=== PATIENT | male | born 1975 | race Caucasian/White ===

== ENCOUNTER 2024-10-27 09:03 | Emergency (ER) | payer MEDICAID ==
[~2024-10-27] VITALS: Ht 175.3 cm; Wt 65.7 kg
[2024-10-27 09:22] VITALS: BP 103/68; PULSE 85; O2SAT 98
--- NOTE | 2024-10-27 09:56 | Physician Documentation ---
History of Present Illness ~ Chief Complaint: Abscess Stated Complaint: ABSCESS Time Seen by MD: 09:39 HPI This is a 49-year-old male who presents with a painful erythematous swollen mass to his right posterior scapular area, patient reports present and gown larger over the last approximately three weeks, patient reports no fever, chills or other systemic symptoms. Patient reports feels otherwise well and reports no other acute symptoms or concerns. Tetanus Within 5 Years: No Medication Reconciliation Allergies: Coded Allergies: No Known Allergies (Unverified , 10/27/24) Scheduled Sulfamethoxazole/Trimethoprim (Bactrim Ds Tablet), 1 TAB PO Q12H Past Medical History Past Medical History: No Pertinent History Review of Systems ROS As stated above in the HPI, otherwise all systems are reviewed and negative. Physical Exam Vital Signs: Temperature: 97.3, Source: Oral, Heart Rate: 85, Respiratory Rate: 16, BP: 103/68, Pulse Oximetry: 98, Weight: 65.720 Oxygen Flow Rate: 0 Physical Exam VITALS: Reviewed and as above. GENERAL: Alert, nontoxic appearing, no apparent distress. RESPIRATORY: No increased work of breathing, no respiratory distress, speaking in full clear sentences SKIN: Skin of right scapular back 8 cm x 8 cm erythematous, tender fluctuant mass with minimal surrounding erythema without significant induration Procedures I & D Procedure : Site: Right posterior scapular area Anesthesia: Lidocaine w/ Epi Volume Anesthetic (mls): 7 Blade Size: 11 Prep/Supplies: drapes applied, dressing applied, irrigated, packing placed (20cm) Incision: mass incised, pus drained, blood drained Tolerated Procedure Well?: yes, no complications Progress Results/Orders Results/Orders Orders - NICOLLE KO Laceration/I&D Tray Set Up (10/27/24 09:50) Consent For Procedure (10/27/24 ) Completed Orders - NICOLLE KO Lidocaine 1% W/Epi 1:100,000 (Xylocaine (10/27/24 09:50) Tetanus/Pertuss/Diph Acell/Pf (Boostrix (10/27/24 09:50) Ketorolac Trometh 15mg/Ml Vial (Toradol (10/27/24 09:55) Vital Signs 10/27/24 10/27/24 10/27/24 09:22 10:18 11:10 Temp 97.3 97.3 Pulse 85 Resp 16 16 B/P (MAP) 103/68 Pulse Ox 98 O2 Flow Rate 0 Medical Decision Making Findings This is a 49-year-old male who presented with a painful erythematous swollen mass to his right posterior scapular area, physical exam demonstrated erythema and fluctuance consistent with an uncomplicated dermal abscess, there was not significant surrounding induration to suggest significant cellulitis of the area. The abscess was successfully drained this incision and drainage and the abscess packed. Patient tolerated procedure well. Remainder of physical exam was benign and it was reassuring patient reported feeling otherwise well without fever, chills, or other systemic symptoms. Due to size of abscess oral antibiotics were indicated. Patient provided home care instructions return to care precautions, and follow up instructions which he verbalized understanding of. Differential Dx:Considerations: Include: Abscess, Bacteremia, Cellulitis, Erysipelas, Gas gangrene, Septicemia Departure Time of Disposition: 11:03 Disposition: 01 HOME / SELF CARE / HOMELESS Impression: Primary Impression: Abscess Condition: Improved Discharge Instructions: Incision and Drainage, Cellulitis, Adult, [id number] Additional Instructions: Please take the antibiotics as prescribed. Keep the area clean dry and covered, change the dressing at least once a day or whenever becomes soiled or soaked. Please return here or your choice of medical provider in 48 hours to have the wound reassessed and packing changed. You may use ibuprofen and or Tylenol as needed for pain. Please follow up with your primary care provider in the next few days. Please return to the emergency department for any new or worsening concerning symptoms. Referrals: NO PRIMARY CARE PROVIDER (PCP) Prescriptions Sulfamethoxazole/Trimethoprim (Bactrim Ds Tablet) 800 Mg-160 Mg Tablet 1 TAB PO Q12H for 7 Days, #14 TAB Prov: NICOLLE KO 10/27/24 Education Educated: Patient Educated regarding: diagnosis, treatment, prognosis, need for follow up Signature Scribe Signature: No scribe Attestation: The note accurately reflects work and decisions made by me.CARLY Yost 10/28/24 20:09 NICOLLE KO Oct 27, 2024 09:56
[2024-10-27 10:18] VITALS: RESP 16
[2024-10-27] MEDS: ketorolac trometh 15mg/ml vial 15 MG/ML ML IM ONE (10:18)
[2024-10-27] MEDS: TETanus/Pertussis (Acell)/Diphther VAC/PF (Tdap-Adult) 0.5ml syringe IMVAC ONE (10:19)
[2024-10-27] MEDS: LIDOcaine 1% W/epiNEPHrine 1:100,000 20ml vial IJ ONE (10:23)
[2024-10-27] MEDS ORDERED: SULF1TAB49 PO (11:03)
[2024-10-27 11:10] VITALS: TEMP 97.3
== END 2024-10-27 11:11 | disposition home or self-care (01) ==
LOC: ER 09:04
DX: M86.8X1 Other osteomyelitis, shoulder (principal); Z79.899 Other long term (current) drug therapy
CPT/HCPCS: 10060; 90471; 90715; 96372; 99284; J1885; A6258; A6407; A6449

== ENCOUNTER → 2024-10-29 | Emergency (ER) | payer MEDICAID ==
[~2024-10-29] VITALS: Ht 175.3 cm; Wt 65.6 kg
[~2024-10-29] MED LIST: SULF1TAB49 PO
[2024-10-29 14:45] VITALS: BP 106/68; PULSE 88; RESP 16; O2SAT 98
--- NOTE | 2024-10-29 16:01 | Physician Documentation ---
History of Present Illness ~ Chief Complaint: Wound Re-Check Stated Complaint: ABSCESS RECHECK Time Seen by MD: 15:13 Source: patient Mode of Arrival: POV Exam Limitations: no limitations HPI 49-year-old male who is here to have his abscess rechecked on his back which was treated here a few days ago with I&D and packing placed. He states he needs to have the packing removed. He reports the pain is a lot better. He has not yet picked up the antibiotics. He denies any new concerns or complaints. Tetanus within 5 years?: No Medication Reconciliation Allergies: Coded Allergies: No Known Allergies (Unverified , 10/27/24) Scheduled Sulfamethoxazole/Trimethoprim (Bactrim Ds Tablet), 1 TAB PO Q12H Past Medical History Past Medical History: No Pertinent History Review of Systems All Other Systems at this time: Reviewed and Negative Physical Exam Vital Signs: Temperature: 98.2, Source: Temporal, Heart Rate: 88, Respiratory Rate: 16, BP: 106/68, Pulse Oximetry: 98, Weight: 65.600 Oxygen Flow Rate: 0 Physical Exam General Appearance: Alert, WD/WN. NAD. HEENT: NCAT, PERRL, EOMI. Neck: Supple, trachea midline. Cardiovascular: RRR. No m/r/g. Lungs: Breathing unlabored BACK: MID BACK THERE IS PACKING IN PLACE THAT IS COMING FROM A AREA WHERE THERE WAS RECENT INCISION AND DRAINAGE. PACKING REMOVED AND PACKING IS MOSTLY BLOODY, NOT A LOT OF DRAINAGE. Extremities: Normal inspection. No edema. Skin: Warm/dry, normal color Neurological: Alert and oriented x4, normal gait. Psychiatric: Affect congruent with mood. Progress Results/Orders Results/Orders Vital Signs 10/29/24 14:45 Temp 98.2 Pulse 88 Resp 16 B/P (MAP) 106/68 Pulse Ox 98 O2 Flow Rate 0 Medical Decision Making Differential Dx:Considerations: Include: Abscess, Cellulitis, Dressing change, Healing wound Departure Time of Disposition: 15:59 Disposition: 01 HOME / SELF CARE / HOMELESS Impression: Primary Impression: Abscess Condition: Stable Discharge Instructions: Abscess, Care After Additional Instructions: CONTINUE TO KEEP AREA CLEAN AND QA AUTOMATION ARCHITECT ANTIBIOTICS PRESCRIBED AT YOUR INITIAL VISIT I DECIDED NOT TO REPACK AREA THE PACKING REMOVED DID NOT CONTAIN A SIGNIFICANT AMOUNT OF DRAINAGE IF INCREASING PAIN, FEVER, OR ANY OTHER CONCERNING SYMPTOMS RETURN TO ER Referrals: NO PRIMARY CARE PROVIDER (PCP) Education Educated: Patient Educated regarding: diagnosis, treatment, need for follow up Signature Scribe Signature: X Attestation: LAURA MCKEON Oct 29, 2024 16:01
[2024-10-29 16:02] VITALS: TEMP 98.2
== END | disposition home or self-care (01) ==
LOC: ER 14:29
DX: L02.212 Cutaneous abscess of back [any part, except buttock and flank] (principal); Z79.899 Other long term (current) drug therapy
CPT/HCPCS: 99281; A6258; A6449

== ENCOUNTER 2025-02-13 16:46 | Inpatient (IN) | payer MEDICAID ==
[~2025-02-13] VITALS: Ht 175.3 cm; Wt 65.9 kg
--- NOTE | 2025-02-13 17:01 | Physician Documentation ---
History of Present Illness ~ Chief Complaint: Hyperglycemia Stated Complaint: HIGH BLOOD SUGAR Time Seen by MD: 17:54 HPI Patient is a very pleasant 49-year-old male that presents to the emergency department for evaluation of elevated glucose or hyperglycemia. Patient reports that he is a type 1 diabetic previously took insulin to control his diabetes. Patient reports that he was taken off of the insulin and placed on metformin and glipizide but has since been changed to Basaglar 42 units daily at bedtime, and did take his dose last night. The patient also reports that he is very hard of hearing, most read lips to communicate. He denies any chills or fever, nausea or vomiting, but does note that he has had some back pain which is new for him. No chest pain or shortness of breath. No urinary symptoms. No diarrhea. Denies other medical problems besides the diabetes. Medication Reconciliation Allergies: Coded Allergies: No Known Allergies (Unverified , 02/13/25) Past Medical History Past Medical History: No Pertinent History Review of Systems ROS As stated above in the HPI, otherwise all systems are reviewed and negative. Physical Exam Vital Signs: Temperature: 98.5, Source: Temporal, Heart Rate: 118, Respiratory Rate: 16, BP: 115/87, Pulse Oximetry: 99, Weight: 65.910 Oxygen Flow Rate: 0 Physical Exam General: Alert, no apparent distress. HEENT: PERRL, EOMI, no injection, moist mucous membranes. Neck: Full range of motion. Respiratory: Lungs clear, no respiratory distress. Chest: No accessory muscle use. Cardiovascular: Regular rate and rhythm, no murmurs. Gastrointestinal: Soft, nontender, nondistended. Bowels sounds present. Extremities: Normal range of motion, no deformity. Neurologic: Oriented x4. Psychiatric: Normal mood and affect. Skin: Normal color, warm and dry. No edema, no ecchymosis. Progress Results/Orders Results/Orders Orders - WHITNEY ARMANDO NP Accucheck (02/13/25 16:54) Accucheck (02/13/25 17:54) Accucheck (02/13/25 18:54) Hs Troponin I W Calculations (02/13/25 18:54) Hs Troponin I W Calculations (02/13/25 19:54) Page Hospitalist (02/13/25 18:12) Ua W/Microscopic, Cult If Ind (02/13/25 17:50) Normal Saline 1,000ml Iv Bolus (02/13/25 18:20) WHITNEY French SOLICITOR PATENT Cbc/Diff (02/13/25 16:54) MG (02/13/25 16:54) BMP (02/13/25 16:54) Hs Troponin I W Calculations (02/13/25 16:54) Liver Panel (02/13/25 16:54) Acetone, Serum (02/13/25 16:55) Insulin Regular, Human (Humulin R 10 Uni (02/13/25 17:55) Electrocardiogram (02/13/25 ) Vital Signs 02/13/25 16:47 Temp 98.5 Pulse 118 Resp 16 B/P (MAP) 115/87 Pulse Ox 99 O2 Flow Rate 0 Laboratory Tests Test 02/13/25 16:50 02/13/25 17:11 02/13/25 17:50 Glucometer 460 *H White Blood Count 12.6 H Red Blood Count 5.14 Hemoglobin 16.6 Hematocrit 48.8 Mean Corpuscular Volume 94.9 Mean Corpuscular Hemoglobin 32.3 H Mean Corpuscular Hemoglobin Concent 34.1 Red Cell Distribution Width 14.7 H Platelet Count 395 Mean Platelet Volume 7.5 Neutrophils (%) (Auto) 73.9 Lymphocytes (%) (Auto) 20.4 L Monocytes (%) (Auto) 5.0 Eosinophils (%) (Auto) 0.2 Basophils (%) (Auto) 0.5 Neutrophils # (Auto) 9.3 H Lymphocytes # (Auto) 2.6 Monocytes # (Auto) 0.6 Eosinophils # (Auto) 0.0 Basophils # (Auto) 0.1 CBC Comment Sodium Level 128 L Potassium Level 4.7 Chloride Level 91 L Carbon Dioxide Level 26.2 Anion Gap 11 Blood Urea Nitrogen 20 H Creatinine 0.79 Estimated GFR/1.73 m2 > 90 BUN/Creatinine Ratio 25.3 H Glucose Level 427 *H Calcium Level 9.6 Magnesium Level 1.7 Total Bilirubin 1.2 H Direct Bilirubin 0.2 Aspartate Amino Transf (AST/SGOT) 12 Alanine Aminotransferase (ALT/SGPT) 8 L Alkaline Phosphatase 95 Troponin I High Sensitivity 12 Total Protein 8.1 Albumin 3.8 Globulin 4.3 Albumin/Globulin Ratio 0.9 L Chemistry Comments Acetone Level Negative Urine Specimen Description Cln catch midstream Urine Color Yellow Urine Clarity Clear Urine pH 5.5 Urine Specific Brigantine 1.010 Urine Protein Trace Urine Glucose (UA) >=1000 H Urine Ketones 40 H Urine Occult Blood Negative Urine Nitrite Negative Urine Bilirubin Small Urine Urobilinogen 0.2 Urine Leukocyte Esterase Negative Volume Urine Centrifuged 10 ml Urine Comment EKG/XRAY/CT/US/VASC/MRI EKG : Additional Comment 1815 EKG interpreted to show RSR with rate of 87. No ectopy. LVH, no ectopy. QTC 496 ms. Medical Decision Making Additional information obtaine: old records Findings Last visit to this hospital 10/29/24 for abscess. Differential Dx:Considerations: Include: Other Differential Diagnosis Due to his hyponatremia of 128, glucoses in the 400's and overall feeling unwell despite his usual insulin regimen, the patient is appropriate for admission and the hospitalist was paged at 1815. His acetone level was negative. Most Likely Diagnoses: Uncontrolled type 2 diabetes mellitus with severe hyperglycemia is the primary concern given home blood sugars in the 400s mg/dL. The general malaise likely reflects symptomatic hyperglycemia, which can manifest as fatigue and nonspecific unwellness even without classic polyuria or polydipsia.[8] Hyperosmolar hyperglycemic state (HHS) should be strongly considered, as it presents with marked hyperglycemia and profound dehydration but typically little or no ketosis. HHS often manifests with neurologic symptoms ranging from lethargy to altered mental status, and the absence of nausea/vomiting does not exclude it. The general unwellness and lack of classic DKA symptoms (nausea, vomiting) make this more likely than DKA.[9] Diabetic ketoacidosis (DKA) remains possible despite the absence of nausea and vomiting, as these symptoms are not universally present. Patients with glucose levels exceeding 200 mg/dL should be evaluated for ketones, particularly when feeling unwell.[2] Mechanical low back pain from degenerative disc disease or musculoskeletal strain is common in this age group. The absence of urinary symptoms, fever, or neurologic deficits makes uncomplicated mechanical pain more likely than infectious or compressive etiologies.[10] Diabetic peripheral neuropathy or radiculopathy can cause back pain in patients with diabetes. Diabetes causes various patterns of nerve injury including radiculoplexus neuropathy and radiculopathy, which could manifest as isolated back pain.[11] Medication nonadherence is a common precipitant of severe hyperglycemia and should be explored as a contributing factor.[9] Most Important Not to Miss Diagnoses: Spinal epidural abscess (SEA) must be excluded given the combination of diabetes (immunocompromise) and back pain. While the classic triad of back pain, fever, and neurologic deficit occurs in less than 8% of cases, fever is absent in 50% of patients. The absence of fever cannot exclude SEA. Diagnosis requires MRI with and without contrast, and inflammatory markers (ESR, CRP) are elevated in the majority of cases.[12] Acute coronary syndrome (ACS) can present atypically in diabetic patients without chest pain or dyspnea. An ECG should be obtained within 10 minutes of presentation, and serial high-sensitivity troponin measurements should be performed. Diabetic patients may have silent ischemia or present with nonspecific symptoms like general malaise.[13] Aortic dissection should be considered, though less likely given the absence of chest pain. Back pain can be a presenting symptom of aortic dissection. A chest x-ray may show suggestive findings, though it is neither sensitive nor specific. Risk stratification tools like the aortic dissection detection risk score combined with D-dimer can help exclude this diagnosis.[14] Departure Referrals: NO PRIMARY CARE PROVIDER (PCP) Signature Scribe Signature: x Attestation: The note accurately reflects work and decisions made by me.Whitney Bhagat NP 02/13/25 17:59 NOÉ TATE Feb 13, 2025 17:01 WHITNEY ARMANDO NP Feb 13, 2025 18:03
[2025-02-13 17:26] LABS: MEAN PLATELET VOLUME 7.5 FL (7.4-10.4); RED CELL DISTRIBUTION WIDTH 14.7 % (11.5-14.5)
[2025-02-13 17:55] LABS: ACETONE NEGATIVE (NEGATIVE)
[2025-02-13] MEDS ORDERED: insulin regular, human 10 units/0.1 ml syringe SQ ONE (17:55)
[2025-02-13 17:56] LABS: CREATININE 0.79 MG/DL (0.60-1.10); TOTAL CARBON DIOXIDE 26.2 MMOL/L (24-32); eCRCL 107 ML/MIN; eGFR > 90 ML/MIN
[2025-02-13 18:10] LABS: LEUKOCYTE ESTERASE ,URINE NEGATIVE (Neg); NITRITES, URINE NEGATIVE (Neg); OCCULT BLOOD,URINE NEGATIVE (Neg)
[2025-02-13 18:12] LABS: UA COLLECTION TYPE CLN CATCH MIDSTREAM
--- NOTE | 2025-02-13 18:19 | ELECTROCARDIOGRAPH REPORT ---
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
[2025-02-13 18:31] LABS: SQUAMOUS EPITHELIAL CELL,UR NONE SEEN /LPF (FEW)
[2025-02-13] MEDS: normal saline 1000ml 1,000 ML IV ONE (18:34)
[2025-02-13] MEDS: insulin regular, human 10 units/0.1 ml syringe IV ONE (18:34)
[2025-02-13] MEDS ORDERED: magnesium Cl slow-release 64mg tablet PO PRN (19:20)
[2025-02-13] MEDS ORDERED: potassium Cl 20 mEq SR tablet PO PRN ×2 (19:20)
[2025-02-13] MEDS ORDERED: magnesium sulf-water 2g/50mL 50 ML IV PRN (19:20)
[2025-02-13] MEDS ORDERED: potassium Cl 40MEQ/1/2NS 520ml 520 ML IV PRN (19:20)
[2025-02-13] MEDS ORDERED: mag hydrox/Alum hydrox/simeth 30ml oral suspension PO PRN (19:20)
[2025-02-13] MEDS ORDERED: magnesium hydroxide 30ml (MOM) UD suspension PO PRN (19:20)
[2025-02-13] MEDS ORDERED: magnesium sulf-water 4G/100mL 100 ML IV PRN (19:20)
[2025-02-13] MEDS ORDERED: ondansetron/PF 4mg/2ml inj IV PRN (19:20)
[2025-02-13] MEDS ORDERED: DEXTROSE 15 GM of carb/4 tabs (each vial/BOTTLE has 4 tablets) PO PRN ×2 (19:35)
[2025-02-13] MEDS ORDERED: dextrose 50%-water 50ml dispensing syringe IV PRN ×2 (19:35)
[2025-02-13] MEDS ORDERED: glucagon, human recombinant 1mg kit SUBCUT PRN (19:35)
[2025-02-13] MEDS ORDERED: INSU100I31 SQ (19:38)
[2025-02-13] MEDS ORDERED: INSU100I8 SQ (19:38)
--- NOTE | 2025-02-13 19:48 | HISTORY AND PHYSICAL-Residence ---
History & Physical Providers to CC Resident Creating Document: TAQUERIA TAN, BABAK ~ History of Present Illness Primary Medical Doctor: None Reason for Admit\Complaint: Hyperglycemic hyperosmolar state, lower backache History of Present Illness 49-year-old male with past medical history of type 1 diabetes mellitus, hard hearing, nicotine use presented to the ER with chief complaints of high blood glucose level and upper back pain. Patient reports that he is a type 1 diabetic previously took insulin to control his diabetes. Patient reports that he was taken off of the insulin and placed on metformin and glipizide but has since been changed to Basaglar 42 units daily at bedtime, and did take his dose last night. He reported wheezing(but inconsistent with his answers regarding respiratory symptoms). He complains of palpitations which is irregular and occasional. He denies fever, chills, cough, chest pain, shortness of breathe, sleep disturbances, loss of appetite, pain abdomen, burning micturition, nausea or vomiting, diarrhea , heartburn, indigestion, acid reflex, dyspepsia, swelling and redness, warmth, rash of legs. He notices the back pain for the past few days which was not there in the past and he denied any weakness of limbs, loss of sensations, numbness of the bilateral limbs, bladder and bowel irregularities. Discussed about code status with the patient and patient wants to be in full code. Allergies: Coded Allergies: No Known Allergies (Unverified , 02/13/25) Home Medications Home Medications Active Reported Humalog (Insulin Lispro) 100 Unit/Ml Insuln.pen 1 Units SQ Basaglar Kwikpen U-100 (Insulin Glargine,Hum.rec.anlog) 100 Unit/Ml (3 Ml) Insuln.pen 32 Units SQ HS Past Medical History Past Medical History Type 1 diabetes mellitus Past Surgical History Surgical History Comment Jaw surgery/wiring at the age of 17 Family History Family History: FHx: type 1 diabetes mellitus Past Social History Smoking: Cigarettes, Greater than 1 pack/day Drug Use: None ROS All Other Systems: Reviewed and Negative ROS Reviewed in full and negative except positive pertinent as in HPI Exam Vitals: Vital Signs Date Time Temp Pulse Resp B/P (MAP) Pulse Ox O2 Delivery O2 Flow Rate FiO2 02/13/25 18:44 92 14 118/78 (91) 96 0 02/13/25 16:47 98.5 General: General: Alert, awake, oriented to time place person. Not in acute distress. HEENT: PERRL, EOMI, no injection. Dryness of oral cavity y Neck: Full range of motion. No JVD, no carotid upstroke Respiratory: Bilateral normal vesicular breath sounds are heard. Occasional wheezing is present. No crepitations are heard. Chest: No accessory muscle use. Cardiovascular: Regular rate and rhythm, no murmurs. Gastrointestinal: Soft, nontender, nondistended. Bowels sounds present. Extremities: Normal range of motion, no deformity. Neurologic: Higher mental functions are intact. Motor system: Tone , bulk, power are normal. Reflexes are 2+ in bilateral biceps, triceps, supinator, knee, ankle region. Power is 5 x 5 in all limbs. Sensory system is intact. Cranial nerves 2-12 are intact. No cerebellar signs of dysdiadochokinesia, finger to finger, finger to nose. No autonomic signs Peter Psychiatric: Normal mood and affect. Skin: Normal color, warm and dry. No edema, no ecchymosis. Diagnostic Data Last Recorded Lab Results: 02/14/25 0602/14/25 06 Advance Care Planning Advanced Care plannin - 30 Minutes Additional Plan Uncontrolled type 1 diabetes mellitus Likely secondary to medication noncompliance Tachycardia is noted Leukocytosis Lactic acid is normal and procalcitonin is Troponins are 11, 12 ProBNP TSH is normal A1c more than 12 Serum osmolality 302 Received 1 L of normal saline Initially glucose levels are 460 and went down to 207 with insulin therapy and patient is currently on Lantus 13 units and high dose Humalog supplemental protocol with a goal of glucose between 140 and 180 Upper backache secondary to Acute compressive fracture of T6 vertebra CT dL spine showed acute compression fracture of T6 vertebra and we consulted Dr. Dain Gaona and he agrees to review the patient. Meanwhile we Ordered TLSO brace. We will let the morning team to touch base with Dr. Dain Gaona Hyperbilirubinemia Serum bilirubin of mild elevation of 1.2 Follow up with CMP on tomorrow Corrected hyponatremia Serum sodium is 128 Sodium is 135 Continue to monitor CMP Hyperlipidemia LDL is 151, cholesterol is 205, triglycerides 147 We will start atorvastatin 40 mg considering 10 year ASCVD risk of 14.1 Patient may probably need aspirin 81 mg for primary prevention considering her 10 year ASCVD score 14.1 Nicotine use disorder Marijuana use disorder Started on nicotine 14 g patch Social consult were placed We spent 17 minutes of time in discussing various life-saving resuscitative ALS measures including and patient decided to be in full code. Code status: Full code Diet: 75 g carbohydrate diet DVT prophylaxis: Heparin Prognosis: Guarded Disposition: Initially we get a call from ER for high blood sugar and lower back pain without any CT imaging and then we spoke with nurse practitioner around 7:15 p.m[address] and ER ordered CT thoracic spine after discussing with us. We reviewed the image which showed acute compressive fracture of T6 vertebrae. we tried Dr. Dain Gaona, we could not able to get hold of him but later he agrees to see the patient meanwhile we ordered TLSO brace and we spoke with house nursing supervisory training specialist and the ER nurse regarding the same. Taqueria Tan IM resident, PGY 2 Date of Service: Feb 13, 2025 Billing Provider: MINDY JACKSON MD Addendum Attestation I agree with the residents assessment and plan as below: 49 year old male with type 1 DM admitted with back pain and hyperglycemia Plan: lantus 30 and high lispro protocol mIVF with NS neurosurgery consult CCT 54 min using HIPPA compliant A/V technology TAQUERIA TAN, BABAK Feb 13, 2025 19:48 MINDY JACKSON MD Feb 14, 2025 18:17
[2025-02-13] MEDS: normal saline 1000ml 1,000 ML IV SCH (20:00)
[2025-02-13] MEDS: K and/or MAG REPLACEMENT MC SCH (20:00)
[2025-02-13] MEDS: docusate sod 100mg capsule PO SCH (20:00)
--- NOTE | 2025-02-13 20:20 | RADIOLOGY REPORT ---
EXAM: CT CT T L SPINE HISTORY: Back pain COMPARISON: None TECHNIQUE: Noncontrast axial CT images of the thoracic and lumbar spine were performed. Sagittal and coronal reformatted images were obtained. This CT exam was performed using one or more of the following dose reduction techniques: Automated exposure control, adjustment of the mA and/or kv according to patient size, or the use of iterative reconstruction techniques. Radiation Dose: CT Dose: CTDI volume is 12.06 mGy. Dose-length product is 701.49 mGy*cm FINDINGS: Thoracic spine: 12 rib-bearing thoracic type vertebrae. Normal thoracic kyphosis. Minimal dextroconvex curvature of the thoracic spine. Acute appearing compression fracture of T6 with about 60% loss of anterior vertebral body height. No significant spinal canal or neural foramina stenosis of the thoracic spine. Diffuse demineralization. T12 superior endplate Schmorl node. Multilevel mild degenerative changes of the thoracic spine. Lumbar spine: 5 [id number] lumbar-type vertebrae. Minimal levoconvex curvature of the lumbar spine. Mild straightening of the lumbar lordosis. Chronic appearing mild loss of superior vertebral body height of L1 with superior L1 endplate Schmorl node. No evidence of acute traumatic fractures or spondylolisthesis. Minimal posterior disc bulge at L4-L5 with mild posterior disc bulge at L5-S1 without significant spinal canal stenosis. No significant neural foramina stenosis. The paraspinal muscles unremarkable. Subcentimeter hypodense left renal lesion which may represent hemorrhagic/proteinaceous cyst. IMPRESSION: Acute appearing compression fracture of T6 with about 60% loss of anterior vertebral body height.
[2025-02-13 20:38] LABS: CHOL/HDL RATIO 5.0 (0.00-4.99); LDL CHOLESTEROL 151 MG/DL (50-100)
[2025-02-13] MEDS ORDERED: albuterol 2.5 MG/3 ML nebule NEB PRN (20:40)
[2025-02-13] MEDS ORDERED: ipratropium/albuterol 3ml nebule NEB PRN (21:20)
[2025-02-13 21:26] VITALS: PULSE 87; RESP 18; O2SAT 95
--- NOTE | 2025-02-13 21:39 | RADIOLOGY REPORT ---
CLINICAL HISTORY: UNCONTROLLED HYPERGLYCEMIA WITH LEUKOCYTOSIS, PNEUMONIA. TECHNIQUE: Single frontal view of the chest was obtained. COMPARISON: None available. FINDINGS: Lungs: Clear. Pleura: No pneumothorax or pleural effusion. Cardiomediastinal silhouette: Normal in size. Mild aortic atherosclerosis. Bones: No acute osseous abnormality. Imaged Upper Abdomen: Unremarkable. IMPRESSION: NO ACUTE CARDIOPULMONARY PROCESS.
[2025-02-13] MEDS: INSULIN LISPRO 100 UNIT/ML INSULN.PEN MULTI-DOSE SQ SCH (21:54)
[2025-02-13] MEDS: insulin glargine (Lantus) pen - multi-dose SQ SCH (21:56)
[2025-02-13 21:58] VITALS: PULSE 8; RESP 19; O2SAT 99
[2025-02-13 22:17] LABS: PRO BRAIN NATRIURETIC PEPTIDE 77 PG/ML (0-125)
[2025-02-13 22:45] VITALS: BP 127/78; PULSE 71; RESP 20; TEMP 97.9; O2SAT 95
[2025-02-13] MEDS ORDERED: ipratropium/albuterol 3ml nebule NEB SCH (23:00)
[2025-02-13] MEDS: nicotine 14mg patch - 24hr TD ONE (23:13)
[2025-02-13] MEDS: heparin, porcine 5000 units/ml vial SQ SCH (23:14)
[2025-02-14 02:00] VITALS: BP 112/95; PULSE 82; RESP 14; TEMP 98.6; O2SAT 97
[2025-02-14 07:01] LABS: MEAN PLATELET VOLUME 7.8 FL (7.4-10.4); RED CELL DISTRIBUTION WIDTH 14.8 % (11.5-14.5)
[2025-02-14 07:04] VITALS: BP 104/72; PULSE 95; RESP 15; TEMP 97.5; O2SAT 99
[2025-02-14 07:37] LABS: CREATININE 0.63 MG/DL (0.60-1.10); PHOSPHORUS 3.6 MG/DL (2.3-4.5); TOTAL CARBON DIOXIDE 28.6 MMOL/L (24-32); eCRCL 134 ML/MIN; eGFR > 90 ML/MIN
[2025-02-14 08:11] VITALS: PULSE 85; RESP 18; O2SAT 92
[2025-02-14 11:54] VITALS: BP 116/70; PULSE 85; RESP 19; TEMP 98.2; O2SAT 100
[2025-02-14] MEDS ORDERED: LANTUS SQ (13:22)
[2025-02-14] MEDS ORDERED: INSU100V11 SQ (13:22)
--- NOTE | 2025-02-14 16:47 | DISCHARGE SUMMARY-Residence ---
Discharge Summary Providers to CC Resident Creating Document: ROXI DENNIS RES CC: LIZZ PHELAN MD ~ Discharge Summary Admission Diagnosis: UNCONTROLLED HYPERGLYCEMIA, LOWER BACK PAIN Hospital Course DATE OF ADMISSION: 02/13/2025 DATE OF DISCHARGE: 02/14/2025 Discharge Diagnosis\Comment: Hyperglycemia due to Uncontrolled type 1 diabetes mellitus secondary to medication noncompliance Upper backache secondary to acute compression fracture of T6 with about 60% loss of anterior vertebral body height. Hyperlipidemia Substance use disorder ( nicotine and marijuana) Operations\Procedures: None Consultants: Dr. Joy, neurosurgeon. Complications: None Condition on DC: Stable New Medications: Insulin Glargine,Hum.rec.anlog* (Lantus*) 100 Unit/1 Ml Vial 32 UNITS SQ HS for 30 Days, #3 VIAL Insulin Lispro (Humalog) 100 Unit/Ml Vial 1 UNITS SQ ACHS for 30 Days, #3 VIAL Take the insulin as per sliding scale Discontinued Medications: Insulin Glargine,Hum.rec.anlog (Basaglar Kwikpen U-100) 100 Unit/Ml (3 Ml) Insuln.pen 32 UNITS SQ HS Insulin Lispro (Humalog) 100 Unit/Ml Insuln.pen 1 UNITS SQ, UNIT Discharge Summary: History of present illness: 49-year-old male with past medical history of type 1 diabetes mellitus, hard hearing, nicotine use presented to the ER with chief complaints of high blood glucose level and upper back pain. He has a history of type 1 diabetes, noncompliant with insulin use. He denies fever, chills, cough, chest pain, shortness of breathe, sleep disturbances, loss of appetite, pain abdomen, burning micturition, nausea or vomiting, diarrhea. He also complained of upper back pain for the past few days. He gives history of lifting heavy weights since the past 1 week. He denied any weakness of limbs, loss of sensations, numbness of the bilateral limbs, bladder and bowel irregularities. Hospital course: His home dose of insulin was started on admission. The patient is blood glucose was soon corrected and back to baseline. Thoracic/lumbar spine CT showed acute vertebral compression fracture of T6 vertebra. He would not have any focal neurological defects except upper back pain. Dr. Joy, neurosurgeon was consulted. He recommended using TLSO backpack. Patient improved quickly in his short period of time. PT cleared him for home discharge. He is symptomatically better and hemodynamically stable and hence being discharged with following instructions. Vital Signs Date Time Temp Pulse Resp B/P (MAP) Pulse Ox O2 Delivery O2 Flow Rate FiO2 02/14/25 11:54 98.2 85 19 116/70 (85) 100 Room Air 02/14/25 08:11 0 21 Laboratory Tests Test 02/13/25 16:50 02/13/25 17:11 02/13/25 17:50 02/13/25 18:30 Glucometer 460 mg/dl 369 mg/dl White Blood Count 12.6 X10'3 Red Blood Count 5.14 X10'6 Hemoglobin 16.6 g/dl Hematocrit 48.8 % Mean Corpuscular Volume 94.9 FL Mean Corpuscular Hemoglobin 32.3 PG Mean Corpuscular Hemoglobin Concent 34.1 g/dL Red Cell Distribution Width 14.7 % Platelet Count 395 X10'3 Mean Platelet Volume 7.5 FL Neutrophils (%) (Auto) 73.9 % Lymphocytes (%) (Auto) 20.4 % Monocytes (%) (Auto) 5.0 % Eosinophils (%) (Auto) 0.2 % Basophils (%) (Auto) 0.5 % Neutrophils # (Auto) 9.3 X10'3 Lymphocytes # (Auto) 2.6 X10'3 Monocytes # (Auto) 0.6 X10'3 Eosinophils # (Auto) 0.0 X10'3 Basophils # (Auto) 0.1 X10'3 CBC Comment Sodium Level 128 MMOL/L Potassium Level 4.7 MMOL/L Chloride Level 91 MMOL/L Carbon Dioxide Level 26.2 MMOL/L Anion Gap 11 Blood Urea Nitrogen 20 MG/DL Creatinine 0.79 MG/DL Estimated GFR/1.73 m2 > 90 ML/MIN BUN/Creatinine Ratio 25.3 Glucose Level 427 MG/DL Hemoglobin A1c > 12.0 % Lactic Acid Level 1.5 MMOL/L Calcium Level 9.6 MG/DL Magnesium Level 1.7 MG/DL Total Bilirubin 1.2 MG/DL Direct Bilirubin 0.2 MG/DL Aspartate Amino Transf (AST/SGOT) 12 U/L Alanine Aminotransferase (ALT/SGPT) 8 U/L Alkaline Phosphatase 95 IU/L Troponin I High Sensitivity 12 ng/L Pro-B-Type Natriuretic Peptide 77 PG/ML Total Protein 8.1 G/DL Albumin 3.8 G/DL Globulin 4.3 G/DL Albumin/Globulin Ratio 0.9 Triglycerides Level 147 MG/DL Cholesterol Level 205 MG/DL LDL Cholesterol 151 MG/DL HDL Cholesterol 41 MG/DL Cholesterol/HDL Ratio 5.0 Procalcitonin < 0.05 NG/ML Thyroid Stimulating Hormone (TSH) 0.44 ulU/ml Chemistry Comments Acetone Level Negative Urine Specimen Description Cln catch midstream Urine Color Yellow Urine Clarity Clear Urine pH 5.5 Urine Specific [place] 1.010 Urine Protein Trace mg/dl Urine Glucose (UA) >=1000 mg/dl Urine Ketones 40 mg/dl Urine Occult Blood Negative Urine Nitrite Negative Urine Bilirubin Small Urine Urobilinogen 0.2 E.U/dL Urine Leukocyte Esterase Negative Urine RBC None seen /HPF Urine WBC None seen /HPF Urine Squamous Epithelial Cells None seen /LPF Urine Bacteria Few /HPF Urine Culture Indicated Not ind Volume Urine Centrifuged 10 ml Urine Comment Test 02/13/25 18:58 02/13/25 19:02 02/13/25 19:34 02/13/25 19:35 Glucometer 292 mg/dl 207 mg/dl Osmolality 302 MOSM/K Troponin I High Sensitivity 11 ng/L 12 ng/L Troponin I High Sens Percent Delta 8 % 0 % Troponin I Hi Sens Absolute Change -1 ng/L 0 ng/L Test 02/13/25 21:23 02/14/25 06:22 02/14/25 07:20 02/14/25 12:02 Glucometer 281 mg/dl 181 mg/dl 247 mg/dl White Blood Count 10.2 X10'3 Red Blood Count 4.50 X10'6 Hemoglobin 14.5 g/dl Hematocrit 42.7 % Mean Corpuscular Volume 94.9 FL Mean Corpuscular Hemoglobin 32.2 PG Mean Corpuscular Hemoglobin Concent 33.9 g/dL Red Cell Distribution Width 14.8 % Platelet Count 332 X10'3 Mean Platelet Volume 7.8 FL Neutrophils (%) (Auto) 58.8 % Lymphocytes (%) (Auto) 33.5 % Monocytes (%) (Auto) 6.1 % Eosinophils (%) (Auto) 1.0 % Basophils (%) (Auto) 0.6 % Neutrophils # (Auto) 6.0 X10'3 Lymphocytes # (Auto) 3.4 X10'3 Monocytes # (Auto) 0.6 X10'3 Eosinophils # (Auto) 0.1 X10'3 Basophils # (Auto) 0.1 X10'3 CBC Comment Sodium Level 136 MMOL/L Potassium Level 3.6 MMOL/L Chloride Level 101 MMOL/L Carbon Dioxide Level 28.6 MMOL/L Anion Gap 6 Blood Urea Nitrogen 13 MG/DL Creatinine 0.63 MG/DL Estimated GFR/1.73 m2 > 90 ML/MIN BUN/Creatinine Ratio 20.6 Glucose Level 151 MG/DL Calcium Level 8.6 MG/DL Phosphorus Level 3.6 MG/DL Magnesium Level 1.5 MG/DL Total Bilirubin 1.1 MG/DL Aspartate Amino Transf (AST/SGOT) 10 U/L Alanine Aminotransferase (ALT/SGPT) 7 U/L Alkaline Phosphatase 75 IU/L Total Protein 6.5 G/DL Albumin 3.1 G/DL Globulin 3.4 G/DL Albumin/Globulin Ratio 0.9 Chemistry Comments Imaging: Chest x-ray: No acute cardiopulmonary process Thoracic/lumbar spine CT: Acute appearing compression fracture of T6 with about 60% loss of anterior vertebral body height. Physical exam on discharge: General: Well alert, well oriented, not confused, not agitated, not in acute distress, well cooperated during the physical. HEENT: Conjunctive are pink, sclerae clear, no icterus, pupil is equal in both sides, reactive to light, no ear discharge, no pharyngeal erythema or an edema. Neck: Supple, no JVD, no lymphadenopathy and thyromegaly. Chest: Equal air entry on both lungs, no added sounds, no wheeze. Cardiovascular: S1-S2 regular sinus rhythm and, regular rate, no gallops, no rubs, no murmurs Abdomen: No visible peristalsis, Bowel sounds present on auscultation, soft, nontender, no guarding, no rigidity Extremities: No obvious deformities, no pitting edema bilaterally, capillary refill intact, peripheral pulsations are intact on both sides Central Nervous System: No focal neurological deficits, no motor or sensory weakness in all 4 extremities, could move all 4 extremities, 2+ deep tendon reflexes, negative Babinski. Musculoskeletal: No joint swelling, deformities, inflammations, and no scoliosis and back tenderness Skin: Multiple tattoos, Warm and dry. Discharge instructions: You have been advised to use TLSO back pack 1 upright or sitting vertical out of bed and for pain control. Avoid lifting heavy weights for 1 month before Neurosurgery clears you. Follow up with your primary care physician in 1 week Follow up with neurosurgeon Dr. Joy in his clinic in 1 week. We advise you to be regular with your diet and insulin to prevent future episode s of hyperglycemia and to have a stricter control on your blood sugar levels to prevent further complications. Visit ER immediately in case of any acute emergencies including dizziness, chest pain, palpitation, numbness, weakness, intractable back pain. *Problems/Diagnosis: (1) Hyperglycemia Status: Acute (2) Type 1 diabetes Status: Chronic (3) Vertebral fracture Status: Acute Total Time Spent on D/C: > 30 Minutes Counseling Services Smoking & Tobacco Cessation: N/A Date of Service: Feb 14, 2025 Billing Provider: LIZZ PHELAN MD Problem Qualifiers (1) Vertebral fracture: Thoracic vertebra fracture level: T6 ROXI DENNIS, RES Feb 14, 2025 13:23
[2025-02-14] MEDS ORDERED: insulin glargine (Lantus) pen - multi-dose SQ SCH (21:00)
== END 2025-02-14 15:52 | disposition home or self-care (01) | DRG 347 ==
LOC: ER 16:47 → ED HOLD 19:29 → EDBEDREQ 20:27 → PCU 3S 22:45
PROVIDERS: ADMIT Internal Medicine; ATTEND Family Medicine
DX: M48.54XA Collapsed vertebra, not elsewhere classified, thoracic region, initial encounter for fracture (principal); E87.1 Hypo-osmolality and hyponatremia; E10.65 Type 1 diabetes mellitus with hyperglycemia; F12.90 Cannabis use, unspecified, uncomplicated; F17.210 Nicotine dependence, cigarettes, uncomplicated; E80.6 Other disorders of bilirubin metabolism; E78.5 Hyperlipidemia, unspecified; Z91.148 Patient's other noncompliance with medication regimen for other reason; Z83.3 Family history of diabetes mellitus
CPT/HCPCS: 36415; 71045; 72128; 72131; 80048; 80053; 80061; 80076; 81001; 82009; 82948; 83036; 83605; 83735; 83880; 83930; 84100; 84145; 84443; 84484; 85025; 87081; 93005; 94760; 96372; 97116; 97162; 99285; G0378; J1644; J1815; J7030